=== PATIENT | female | born 1990 | race African-American/Black ===

== ENCOUNTER → 2021-09-08 11:18 | Outpatient (REF) | payer OTHER, SELFPAY ==
--- NOTE | 2021-09-08 11:31 | CA_ITS ---
Transthoracic Echocardiogram Patient (Last, First, Middle): Debra Uribe, Gender: Female Date of : 1990 Age: 31 Procedure Date: 09/08/2021 Procedure Type: Transthoracic Echocardiogram Location: [place] Height: 160.02 cm Weight: 70.76 kg BSA: 1.74 m2 Heart Rate: bpm BP: 122 / 70 mmHg Access Service Representative: SOFI Referring MD: Ene CARUSO Commercial Loan Assistant: Tavo Simpson MD Symptoms: CARDIAC MURMUR R01.1 Study Quality: Fair ECG Rhythm: Sinus Conclusions: - Normal study Findings Left Ventricle Normal left ventricular size, thickness, and systolic function. The visually estimated ejection fraction is between 65-70%. Diastolic function is normal for age. Right Ventricle Normal right ventricular cavity size and systolic function. Atria Both atria are normal in size. There is no evidence of interatrial shunt. Aortic Valve Normal aortic valve structure and function. There is no aortic valve stenosis. There is no aortic valve regurgitation. Mitral Valve Normal mitral valve structure and function. There is trace mitral valve regurgitation. There is no mitral valve stenosis. Pulmonic Valve The pulmonic valve is likely normal. Tricuspid Valve Normal tricuspid valve structure. There is trace tricuspid valve regurgitation. The right ventricular systolic pressure is normal. The right ventricular systolic pressure is 25 mmHg. Normal right atrial pressure. There is no evidence of pulmonary hypertension. Great Vessels All visible segments of the aorta are normal in size. The pulmonary artery was not well visualized. Venous The inferior vena cava is normal in size and collapses greater than 50% with inspiration. Pericardium/Pleural There is no evidence of pericardial effusion. Prior Study Comparison No prior study available for comparison. I could not read this study till today due to technical issues Measurements 2D Linear Measurements IVSd: 1.11 0.6-0.9/0.6-1.0 cm LVIDd: 4.65 3.9-5.3/4.2-5.9 cm LVIDd Index: 2.67 2.4-3.2/2.2-3.1 cm/m2 LVIDs: 2.71 2.0-3.6 cm LVPWd: 0.98 0.7-1.1 cm Ao Root: 2.40 2.1-3.5 cm LA Diam: 3.70 2.7-3.8/3.0-4.0 cm LAIDs Index: 2.13 1.5-2.3 cm/m2 LV Mass: 213.15 67-162/88-224 g LV Mass Index: 122.50 43-95/49-115 g/m2 LVOT Diam: 2.00 3.0+(-)1.3 cm Mitral Valve MV VTI: 0.42 MV Pk Frank: 1.49 MV Mn Frank: 0.72 MV Pk Grad: 9.00 MV Mn Grad: 3.00 MV Pk E: 1.54 MV PK A: 0.55 MV Decel Time: 218.00 E/A: 2.80 E'Lateral: 12.50 E'Medial: 12.40 E/E' Med: 12.40 E/E' Lat: 12.30 PHT: 64.00 MVA PHT: 3.44 MVA Continuity: 2.34 Decel Pratt: 7.04 Aortic Valve AoV Pk Frank: 1.68 AoV Mn Frank: 1.02 AoV VTI: 0.38 AoV Pk Grad: 11.00 Aov Mn Grad: 5.00 KAROL Cont.VTI: 2.59 LVOT LVOT Pk Frank: 1.35 LVOT Mn Frank: 0.91 LVOT VTI: 0.31 LVOT Pk Grad: 7.00 LVOT Mn Grad: 4.00 LVOT Diam: 2.00 LVOT Area: 3.14 Diastolic Function MV Pk E: 1.54 MV Pk A: 0.55 E/A: 2.80 E'Medial: 12.40 E/E' Med: 12.40 E' Laterial: 12.50 E/E' Lat: 12.30 Tricuspid Valve TR Pk Frank: 2.37 TR Pk Grad: 22.00 RA Press: 3.00 RVSP: 25.00 Great Vessels Aorta Ao Root-2D: 2.40 2.0-3.7 cm Ao Asc: 2.10 2.1-3.4 cm Pulmonary Valve PV Pk Frank: 1.10 Peak PV Grad: 5.00 Updated in Other Vendor System with Status of Final Tavo Simpson MD electronically signed on 09/12/2021 9:19:18 AM with status of Final
== END ==
LOC: HO.CARD 11:18
PROVIDERS: Visit Provider Physician Assistant
DX: R01.1 Cardiac murmur, unspecified (principal)
CPT/HCPCS: 93306